=== PATIENT | female | born 1970 | race African-American/Black ===

== ENCOUNTER 2020-06-22 03:03 | Inpatient (IN) | payer MEDICAID, OTHER ==
[~2020-06-22] VITALS: Ht 154.9 cm; Wt 115.2 kg
[2020-06-22 03:52] LABS: CHLORIDE 110 mEq/L (98-107)
[2020-06-22 04:04] LABS: BASOPHILS % 1.3 % (0.0-2.0); EOSINOPHILS % 2.4 % (0.0-5.0); HEMATOCRIT. 36.1 % (36.0-48.0); HEMOGLOBIN. 12.2 g/dL (12.0-16.0); LYMPHOCYTES % 33.1 % (20.0-50.0); MEAN CORPUSCULAR HEMOGLOBIN 33.2 pg (28.0-32.0); MEAN CORPUSCULAR VOLUME 98.1 fL (81.0-99.0); MEAN PLATELET VOLUME 8.6 fl (7.4-10.4); MONOCYTES % 13.1 % (2.0-8.0); NEUTROPHILS % 50.1 % (40.0-76.0); PLATELET 258 x1000/uL (130-400); RED BLOOD CELL COUNT 3.68 mill/uL (4.2-5.4); RED CELL DISTRIBUTION WIDTH 14.5 % (11.6-14.6)
[2020-06-22 10:30] VITALS: BP 130/80
[2020-06-22] MEDS ORDERED: IPRATROPIUM/ALBUTEROL 0.5-3(2.5)MG/3ML NEB HHN PRN (11:15)
[2020-06-22] MEDS ORDERED: ONDANSETRON HCL 4MG/2ML INJ IV PRN (11:15)
[2020-06-22] MEDS ORDERED: ACETAMINOPHEN 325MG TABLET PO PRN (11:15)
[2020-06-22 12:00] VITALS: BP 138/74
[2020-06-22] MEDS: ENOXAPARIN 40MG/0.4ML SYR SUBCUT SCH ×2 (12:00→20:41)
[2020-06-22] MEDS ORDERED: HYDR25TA MT (13:21)
[2020-06-22] MEDS ORDERED: BECL10.62 INH (13:21)
[2020-06-22 13:35] LABS: LDL CHOLESTEROL 71 mg/dL (5-100)
[2020-06-22 13:37] LABS: HDL CHOLESTEROL 43 mg/dL (40-59)
[2020-06-22 16:00] VITALS: BP 135/75
[2020-06-22 19:02] LABS: *AMPHETAMINES SCREEN URINE NEGATIVE (NEGATIVE); *BARBITURATES SCREEN URINE NEGATIVE (NEGATIVE); *BENZODIAZEPINES SCREEN URINE NEGATIVE (NEGATIVE); *COCAINE SCREEN URINE NEGATIVE (NEGATIVE); METHADONE URINE SCREEN NEGATIVE (NEGATIVE)
[2020-06-22 19:03] LABS: CANNABINOID URINE SCREEN NEGATIVE (NEGATIVE); OPIATES URINE SCREEN NEGATIVE (NEGATIVE); PHENCYCLIDINE URINE SCREEN NEGATIVE (NEGATIVE)
[2020-06-22 20:00] VITALS: BP 128/58
[2020-06-23] VITALS: BP 141/88
[2020-06-23 04:00] VITALS: BP 144/91
[2020-06-23 06:54] LABS: CHLORIDE 109 mEq/L (98-107)
[2020-06-23 07:21] LABS: BASOPHILS % 0.3 % (0.0-2.0); EOSINOPHILS % 2.7 % (0.0-5.0); HEMATOCRIT. 34.4 % (36.0-48.0); HEMOGLOBIN. 11.5 g/dL (12.0-16.0); LYMPHOCYTES % 40.4 % (20.0-50.0); MEAN CORPUSCULAR HEMOGLOBIN 32.9 pg (28.0-32.0); MEAN CORPUSCULAR VOLUME 98.2 fL (81.0-99.0); MEAN PLATELET VOLUME 8.8 fl (7.4-10.4); MONOCYTES % 12.4 % (2.0-8.0); NEUTROPHILS % 44.2 % (40.0-76.0); PLATELET 237 x1000/uL (130-400); RED CELL DISTRIBUTION WIDTH 14.4 % (11.6-14.6)
[2020-06-23 08:07] VITALS: BP 122/78
[2020-06-23] MEDS ORDERED: ASPIRIN 81MG TABLET PO SCH (09:00)
[2020-06-23] MEDS ORDERED: REGADENOSON 0.4 MG/5 ML IV NR (09:00)
[2020-06-23] MEDS ORDERED: REGADENOSON 0.4 MG/5 ML IV ONE (09:33)
[2020-06-23] MEDS: ENOXAPARIN 40MG/0.4ML SYR SUBCUT SCH (10:43)
[2020-06-23] MEDS ORDERED: SODIUM CHLORIDE 0.45% 1,000 ML IV SCH (11:30)
[2020-06-23 12:06] VITALS: BP 145/85
[2020-06-23] MEDS ORDERED: MIDAZOLAM HCL 5 MG/5 ML VIAL ONE (14:09)
[2020-06-23] MEDS ORDERED: FENTANYL CITRATE/PF 50MCG/ML 5ML VIAL ONE (14:09)
[2020-06-23] MEDS ORDERED: IODIXANOL 320MG/ML 200ML BOTTLE ONE (14:10)
[2020-06-23] MEDS ORDERED: LIDOCAINE HCL 1% 20ML VIAL (Pyxis) INJ ONE (14:10)
[2020-06-23] MEDS ORDERED: ASPI-1160 PO (15:54)
[2020-06-23] MEDS ORDERED: HYDR25TA MT (15:54)
[2020-06-23 16:32] VITALS: BP 138/80
[2020-06-23 16:41] VITALS: BP 138/80
== END 2020-06-23 18:31 | disposition home or self-care (01) | DRG 198 ==
LOC: ER 03:03 → 6WST 05:45 → ENRESERV 09:56
PROVIDERS: ADMIT Internal Medicine; ATTEND Internal Medicine
DX: I25.119 Atherosclerotic heart disease of native coronary artery with unspecified angina pectoris (principal); I10 Essential (primary) hypertension; E66.09 Other obesity due to excess calories; E78.5 Hyperlipidemia, unspecified; Z20.828 Contact with and (suspected) exposure to other viral communicable diseases; E87.8 Other disorders of electrolyte and fluid balance, not elsewhere classified; J45.909 Unspecified asthma, uncomplicated; G47.33 Obstructive sleep apnea (adult) (pediatric); E44.1 Mild protein-calorie malnutrition; Z53.29 Procedure and treatment not carried out because of patient's decision for other reasons; Z82.49 Family history of ischemic heart disease and other diseases of the circulatory system; Z68.42 Body mass index [BMI] 45.0-49.9, adult; Z71.3 Dietary counseling and surveillance
CPT/HCPCS: 36415; 71045; 78452; 80048; 80053; 80061; 80305; 83735; 83880; 84443; 84484; 85025; 85379; 87426; 93005; 93017; 93306; 99285; A9500; J1644; J1650; J2250; J2785; J3010; J3490; Q9967

== ENCOUNTER 2020-12-06 10:43 | Inpatient (IN) | payer MEDICAID ==
[~2020-12-06] VITALS: Ht 157.5 cm; Wt 151.7 kg
[~2020-12-06 10:43] MED LIST: ASPI-1160 PO; BECL10.62 INH; HYDR25TA MT
[2020-12-06] MEDS ORDERED: ONDANSETRON HCL 4MG/2ML INJ IV STA (10:55)
[2020-12-06] MEDS ORDERED: MORPHINE SULFATE 4 MG/ML CPJ (NOT FOR IM USE) IV STA (11:03)
[2020-12-06] MEDS ORDERED: NITROGLYCERIN OINT 1GM/INCH UDPKT TD ONE (11:15)
[2020-12-06] MEDS ORDERED: SODIUM CHLORIDE 0.9% 1,000 ML IV ONE (11:15)
[2020-12-06 11:50] LABS: CHLORIDE 112 mEq/L (98-107)
[2020-12-06 11:55] LABS: BASOPHILS % 0.7 % (0.0-2.0); EOSINOPHILS % 2.8 % (0.0-5.0); HEMATOCRIT. 35.5 % (36.0-48.0); HEMOGLOBIN. 11.9 g/dL (12.0-16.0); LYMPHOCYTES % 42.7 % (20.0-50.0); MEAN CORPUSCULAR HEMOGLOBIN 32.9 pg (28.0-32.0); MEAN CORPUSCULAR VOLUME 98.3 fL (81.0-99.0); MONOCYTES % 13.7 % (2.0-8.0); NEUTROPHILS % 40.1 % (40.0-76.0); PLATELET 264 x1000/uL (130-400); RED BLOOD CELL COUNT 3.62 mill/uL (4.2-5.4); RED CELL DISTRIBUTION WIDTH 14.6 % (11.6-14.6)
[2020-12-06] MEDS ORDERED: ACETAMINOPHEN 325MG TABLET PO ONE (13:15)
[2020-12-06 17:00] VITALS: BP 136/75
[2020-12-06] MEDS ORDERED: DOCUSATE SODIUM 100MG CAPSULE PO PRN (17:15)
[2020-12-06] MEDS ORDERED: CLONIDINE 0.1MG TABLET PO PRN (17:15)
[2020-12-06] MEDS ORDERED: IPRATROPIUM/ALBUTEROL 0.5-3(2.5)MG/3ML NEB HHN PRN (17:15)
[2020-12-06] MEDS ORDERED: NITROGLYCERIN 0.4MG TABLET SL SL PRN (17:15)
[2020-12-06] MEDS ORDERED: MAGNESIUM/ALUMINUM HYDROXIDE/SIMETHICONE 30ML UDC PO PRN (17:15)
[2020-12-06] MEDS ORDERED: ENOXAPARIN 40MG/0.4ML SYR SUBCUT SCH (17:15)
[2020-12-06] MEDS ORDERED: MORPHINE SULFATE 2 MG/ML CPJ (NOT FOR IM USE) IV PRN (17:15)
[2020-12-06] MEDS ORDERED: ACETAMINOPHEN 325MG TABLET PO PRN ×2 (17:15)
[2020-12-06] MEDS ORDERED: ONDANSETRON HCL 4MG/2ML INJ IV PRN (17:15)
[2020-12-06] MEDS: ONDANSETRON HCL 4MG/2ML INJ IV PRN (17:55)
[2020-12-06] MEDS ORDERED: ALBU90AE INH (18:51)
[2020-12-06] MEDS ORDERED: ALBU6.7H9 INH (18:51)
[2020-12-06 20:00] VITALS: BP 161/93
[2020-12-06] MEDS: ENOXAPARIN 30MG/0.3ML SYR SUBCUT SCH (22:08)
[2020-12-06] MEDS: METOPROLOL TARTRATE 50MG TABLET PO SCH (22:08)
[2020-12-06 22:37] LABS: CLARITY URINE TURBID (CLEAR); COLOR URINE YELLOW (YELLOW); KETONES URINE NEGATIVE (NEGATIVE); LEUKOCYTE ESTERASE URINE 2+ (NEGATIVE); NITRITE URINE NEGATIVE (NEGATIVE); OCCULT BLOOD URINE 1+ (NEGATIVE); PH URINE 5.5 (4.5-8.0); PROTEIN URINE NEGATIVE (NEGATIVE); SPECIFIC GRAVITY URINE 1.026 (1.005-1.030); UROBILINOGEN URINE 0.2 E.U./dL (0.2-1.0)
[2020-12-06 22:46] LABS: METHADONE URINE SCREEN NEGATIVE (NEGATIVE); PHENCYCLIDINE URINE SCREEN NEGATIVE (NEGATIVE)
[2020-12-06 22:47] LABS: *AMPHETAMINES SCREEN URINE NEGATIVE (NEGATIVE); *BARBITURATES SCREEN URINE NEGATIVE (NEGATIVE); *BENZODIAZEPINES SCREEN URINE NEGATIVE (NEGATIVE); *COCAINE SCREEN URINE NEGATIVE (NEGATIVE); CANNABINOID URINE SCREEN NEGATIVE (NEGATIVE); OPIATES URINE SCREEN NEGATIVE (NEGATIVE)
[2020-12-07] VITALS: BP 156/88
[2020-12-07] MEDS: ONDANSETRON HCL 4MG/2ML INJ IV PRN ×2 (00:23→09:10)
[2020-12-07] MEDS: HYDROCODONE/ACETAMINOPHEN 5/325MG TABLET PO PRN ×2 (00:57→02:00)
[2020-12-07 04:00] VITALS: BP 149/86
[2020-12-07] MEDS ORDERED: OMEPRAZOLE 20MG CAPSULE EXTENDED RELEASE PO SCH (06:45)
[2020-12-07 08:00] VITALS: BP 151/91
[2020-12-07] MEDS ORDERED: ENOXAPARIN 40MG/0.4ML SYR SUBCUT SCH ×2 (09:00→21:00)
[2020-12-07] MEDS ORDERED: PANTOPRAZOLE SODIUM 40 MG/VIAL IV SCH (09:00)
[2020-12-07] MEDS ORDERED: HYDROCHLOROTHIAZIDE 25MG TABLET PO SCH (09:00)
[2020-12-07] MEDS ORDERED: ASPIRIN 81MG TABLET PO SCH ×2 (09:00)
[2020-12-07] MEDS: METOPROLOL TARTRATE 50MG TABLET PO SCH (09:08)
[2020-12-07] MEDS: ENOXAPARIN 30MG/0.3ML SYR SUBCUT SCH (09:08)
[2020-12-07 09:50] LABS: BASOPHILS % 0.6 % (0.0-2.0); EOSINOPHILS % 2.3 % (0.0-5.0); HEMATOCRIT. 35.5 % (36.0-48.0); LYMPHOCYTES % 43.4 % (20.0-50.0); MEAN CORPUSCULAR HEMOGLOBIN 33.1 pg (28.0-32.0); MEAN CORPUSCULAR VOLUME 97.7 fL (81.0-99.0); MEAN PLATELET VOLUME 8.3 fl (7.4-10.4); MONOCYTES % 12.4 % (2.0-8.0); NEUTROPHILS % 41.3 % (40.0-76.0); PLATELET 296 x1000/uL (130-400); RED BLOOD CELL COUNT 3.64 mill/uL (4.2-5.4); RED CELL DISTRIBUTION WIDTH 14.5 % (11.6-14.6)
[2020-12-07 10:07] LABS: CHLORIDE 107 mEq/L (98-107)
[2020-12-07 10:23] LABS: PHOSPHORUS 2.8 mg/dL (2.5-4.9)
[2020-12-07 10:24] LABS: LDL CHOLESTEROL 85 mg/dL (5-100)
[2020-12-07 10:25] LABS: HDL CHOLESTEROL 43 mg/dL (40-59)
[2020-12-07 11:58] VITALS: BP 125/59
[2020-12-07 16:00] VITALS: BP 142/86
[2020-12-07 20:00] VITALS: BP 152/97
== END 2020-12-07 21:01 | disposition left against medical advice (07) | DRG 203 ==
LOC: ER 10:43 → 5WST 13:25 → EDBEDREQ 14:02 → ENRESERV 14:41 → ER 16:00
PROVIDERS: ADMIT Internal Medicine; ATTEND Internal Medicine
DX: M94.0 Chondrocostal junction syndrome [Tietze] (principal); E44.1 Mild protein-calorie malnutrition; E87.8 Other disorders of electrolyte and fluid balance, not elsewhere classified; Z68.44 Body mass index [BMI] 60.0-69.9, adult; I10 Essential (primary) hypertension; J45.909 Unspecified asthma, uncomplicated; D64.9 Anemia, unspecified; Z79.899 Other long term (current) drug therapy; Z79.82 Long term (current) use of aspirin; Z53.29 Procedure and treatment not carried out because of patient's decision for other reasons; Z83.3 Family history of diabetes mellitus; Z82.49 Family history of ischemic heart disease and other diseases of the circulatory system; E83.51 Hypocalcemia
CPT/HCPCS: 36415; 71045; 80048; 80053; 80061; 80076; 80305; 81003; 83735; 83880; 84100; 84443; 84484; 85025; 93005; 93306; 93970; 99291; C9113; J1650; J2270; J2405; J7030

== ENCOUNTER 2021-08-02 14:17 | Emergency (ER) | payer MEDICAID, OTHER ==
[~2021-08-02] VITALS: Ht 157.5 cm; Wt 160.0 kg
[~2021-08-02 14:17] MED LIST changes: +ALBU6.7H9 INH; +ALBU90AE INH
[2021-08-02 14:30] VITALS: BP 117/93
[2021-08-02] MEDS ORDERED: METOCLOPRAMIDE HCL 10MG/2ML VIAL IV STA (16:16)
[2021-08-02] MEDS ORDERED: MAGNESIUM/ALUMINUM HYDROXIDE/SIMETHICONE 30ML UDC PO STA (16:16)
[2021-08-02] MEDS ORDERED: VISCOUS LIDOCAINE 2% 15 ML UDC PO STA (16:16)
[2021-08-02] MEDS ORDERED: SODIUM CHLORIDE 0.9% 1,000 ML IV ONE (16:30)
[2021-08-02 16:44] LABS: BASOPHILS % 0.6 % (0.0-2.0); EOSINOPHILS % 0.1 % (0.0-5.0); HEMATOCRIT. 43.6 % (36.0-48.0); HEMOGLOBIN. 14.3 g/dL (12.0-16.0); LYMPHOCYTES % 27.3 % (20.0-50.0); MEAN CORPUSCULAR HEMOGLOBIN 31.3 pg (28.0-32.0); MEAN CORPUSCULAR VOLUME 95.5 fL (81.0-99.0); MEAN PLATELET VOLUME 8.8 fl (7.4-10.4); MONOCYTES % 12.2 % (2.0-8.0); NEUTROPHILS % 59.8 % (40.0-76.0); PLATELET 214 x1000/uL (130-400); RED BLOOD CELL COUNT 4.57 mill/uL (4.2-5.4); RED CELL DISTRIBUTION WIDTH 13.6 % (11.6-14.6)
[2021-08-02 16:48] LABS: CHLORIDE 104 mEq/L (98-107)
== END 2021-08-02 23:38 | disposition left against medical advice (07) ==
LOC: ER 14:17
DX: R11.2 Nausea with vomiting, unspecified (principal); R09.81 Nasal congestion; R05.9 Cough, unspecified; I49.9 Cardiac arrhythmia, unspecified
CPT/HCPCS: 36415; 71045; 80053; 83690; 84484; 85025; 93005; 99285; J7030